=== PATIENT | female | born 1940 | race Caucasian/White ===

== ENCOUNTER 2021-12-19 17:17 | Inpatient (IN) | payer MEDICARE ==
[~2021-12-19] VITALS: Ht 165.1 cm; Wt 51.7 kg
[2021-12-19] MEDS ORDERED: NALOXONE HCL 1 MG/ML 2ML VIAL ONE (17:22)
[2021-12-19 17:38] LABS: BASOPHILS % 0.3 % (0.0-2.0); HEMATOCRIT. 43.8 % (36.0-48.0); HEMOGLOBIN. 13.8 g/dL (12.0-16.0); LYMPHOCYTES % 15.4 % (20.0-50.0); MEAN CORPUSCULAR HEMOGLOBIN 28.8 pg (28.0-32.0); MEAN CORPUSCULAR VOLUME 91.3 fL (81.0-99.0); MEAN PLATELET VOLUME 7.8 fl (7.4-10.4); MONOCYTES % 8.1 % (2.0-8.0); NEUTROPHILS % 75.2 % (40.0-76.0); PLATELET 242 x1000/uL (130-400)
[2021-12-19] MEDS ORDERED: MIDAZOLAM HCL 2 MG/2 ML VIAL ONE (17:40)
[2021-12-19 17:41] LABS: CHLORIDE 94 mEq/L (98-107)
[2021-12-19 17:51] LABS: BG BASE EXCESS -2.5 mmol/L (-2.0-2.0); BG CARBOXYHEMOGLOBIN 0.5 % (0.5-1.5); BG DEOXYHEMOGLOBIN 0.5 % (0.0-5.0); BG FRACTION INSPIRED OXYGEN 100; BG HCO3 ACT 21.4 mmol/L (22.0-26.0); BG METHEMOGLOBIN 0.3 % (0.0-1.5); BG OXYGEN SATURATION 99.5 % (92.0-98.5); BG OXYHEMOGLOBIN 98.7 % (94.0-97.0); BG PCO2 34.6 mmHg (35.0-45.0); BG PH 7.409 (7.350-7.450); BG PO2 251.4 mmHg (75.0-100.0); BG SAMPLE SITE LEFT BRACHIAL; BG TOTAL HEMOGLOBIN 14.4 g/dL (12.0-18.0); BG VENT MODE MASK - NRB
[2021-12-19 17:57] LABS: CREATINE KINASE 119 IU/L (26-192); ETHANOL BLOOD < 10 mg/dL
[2021-12-19] MEDS ORDERED: PIPERACILLIN/TAZ 3.375G PREMIX 50 ML IV NR (18:00)
[2021-12-19] MEDS ORDERED: VANCOMYCIN 1GM PMX (XELLIA) 200 ML IV NR (18:00)
[2021-12-19] MEDS ORDERED: LEVETIRACETAM 1000MG PREMIX 100 ML IV ONE (18:15)
[2021-12-19] MEDS ORDERED: MIDAZOLAM HCL 2 MG/2 ML VIAL IV ONE (18:15)
[2021-12-19] MEDS ORDERED: SODIUM CHLORIDE 0.9% 1000ML BAG (SEPSIS BOLUS) IV ONE (18:45)
[2021-12-19] MEDS ORDERED: OLANZAPINE 10 MG/VIAL IM NR (18:45)
[2021-12-19] MEDS ORDERED: IOHEXOL-350 100 ML BOTTLE ONE (19:06)
[2021-12-19] MEDS ORDERED: HALOPERIDOL LACTATE 5MG/ML VIAL IM NR (20:00)
[2021-12-19] MEDS ORDERED: DIPHENHYDRAMINE 50MG/ML VIAL IV NR (20:00)
[2021-12-19] MEDS ORDERED: POTASSIUM CHLORIDE INJ 40 MEQ in DEXT 5% WATER 500 ML IV NR (20:00)
[2021-12-19] MEDS ORDERED: LACTULOSE 20G/30ML UDC PO NR (20:15)
[2021-12-19 20:23] LABS: CLARITY URINE CLEAR (CLEAR); COLOR URINE YELLOW (YELLOW); KETONES URINE 1+ (NEGATIVE); LEUKOCYTE ESTERASE URINE NEGATIVE (NEGATIVE); NITRITE URINE NEGATIVE (NEGATIVE); OCCULT BLOOD URINE 1+ (NEGATIVE); PH URINE 7.5 (4.5-8.0); PROTEIN URINE 1+ (NEGATIVE); SPECIFIC GRAVITY URINE 1.023 (1.005-1.030); UROBILINOGEN URINE 0.2 E.U./dL (0.2-1.0)
[2021-12-19] MEDS ORDERED: ADENOSINE 3 MG/ML 2ML VIAL IV ONE ×3 (20:45→21:15)
[2021-12-19] MEDS ORDERED: ASPIRIN 325MG EC TABLET PO ONE (21:00)
[2021-12-19] MEDS ORDERED: DILTIAZEM HCL 5MG/ML 5ML VIAL IV ONE (21:15)
[2021-12-19 21:16] LABS: *AMPHETAMINES SCREEN URINE NEGATIVE (NEGATIVE); *BARBITURATES SCREEN URINE NEGATIVE (NEGATIVE); *BENZODIAZEPINES SCREEN URINE PRESUMTIVE POSITIVE (NEGATIVE); *COCAINE SCREEN URINE NEGATIVE (NEGATIVE); CANNABINOID URINE SCREEN NEGATIVE (NEGATIVE); METHADONE URINE SCREEN NEGATIVE (NEGATIVE); OPIATES URINE SCREEN NEGATIVE (NEGATIVE); PHENCYCLIDINE URINE SCREEN NEGATIVE (NEGATIVE)
[2021-12-19] MEDS ORDERED: DILTIAZEM HCL 125 MG in DEXT 5% WATER 100 ML IV ONE ×2 (21:30→22:15)
[2021-12-19] MEDS ORDERED: DILTIAZEM HCL 125 MG in DEXT 5% WATER 100 ML IV NR (21:30)
[2021-12-19] MEDS ORDERED: DILTIAZEM 125MG/125ML PMX 125 ML IV NR (21:30)
[2021-12-19] MEDS ORDERED: AMIODARONE HCL 150 MG in DEXT 5% WATER 97 ML IV ONE (21:45)
[2021-12-19] MEDS ORDERED: AMIODARONE HCL 150 MG in DEXT 5% WATER 97 ML IV NR (21:45)
[2021-12-19] MEDS ORDERED: AMIODARONE HCL 50MG/ML 3ML VIAL IV ONE ×2 (21:45→22:15)
[2021-12-19] MEDS ORDERED: METOPROLOL TARTRATE 5MG/5ML VIAL IV SCH (22:15)
[2021-12-19] MEDS ORDERED: AMIODARONE HCL 900 MG in DEXT 5% WATER 500 ML IV ONE (23:00)
[2021-12-19] MEDS ORDERED: SODIUM CHLORIDE 0.9% 2,000 ML IV ONE (23:15)
[2021-12-20] VITALS (35 sets, daily range): BP systolic 116–200; BP diastolic 54–154
[2021-12-20] MEDS ORDERED: DILTIAZEM 125MG/125ML PMX 100 ML IV SCH (04:45)
[2021-12-20] MEDS ORDERED: AMIODARONE HCL 900 MG in DEXT 5% WATER 482 ML IV SCH ×2 (04:45→07:00)
[2021-12-20] MEDS ORDERED: AMIODARONE HCL 900 MG in DEXT 5% WATER 500 ML IV PRN (05:15)
[2021-12-20 06:03] LABS: HEMATOCRIT. 36.4 % (36.0-48.0); HEMOGLOBIN. 11.8 g/dL (12.0-16.0); MEAN CORPUSCULAR HEMOGLOBIN 29.1 pg (28.0-32.0); MEAN CORPUSCULAR VOLUME 89.7 fL (81.0-99.0); MEAN PLATELET VOLUME 8.1 fl (7.4-10.4); PLATELET 214 x1000/uL (130-400); RED BLOOD CELL COUNT 4.06 mill/uL (4.2-5.4); RED CELL DISTRIBUTION WIDTH 14.6 % (11.6-14.6)
[2021-12-20 06:33] LABS: CHLORIDE 100 mEq/L (98-107)
[2021-12-20] MEDS: DILTIAZEM HCL 60MG TABLET PO SCH ×3 (08:45→21:54)
[2021-12-20 08:53] LABS: PLATELET ESTIMATE NORMAL
[2021-12-20] MEDS: PANTOPRAZOLE SODIUM 40 MG/VIAL IV SCH (09:00)
[2021-12-20] MEDS: RISPERIDONE 0.5MG TABLET PO SCH (11:00)
[2021-12-20] MEDS ORDERED: LEVETIRACETAM 500 MG in SODIUM CHLORIDE 0.9% 100 ML IV SCH (11:00)
[2021-12-20] MEDS ORDERED: SODIUM CHLORIDE 0.9% 1,000 ML IV SCH ×2 (11:00→18:15)
[2021-12-20] MEDS ORDERED: IPRATROPIUM BROMIDE (0.02%) 0.5MG/2.5ML NEB HHN PRN (11:30)
[2021-12-20] MEDS ORDERED: LEVETIRACETAM 500MG PREMIX 100 ML IV SCH (12:30)
[2021-12-20] MEDS ORDERED: LABETALOL 5MG/ML SYR 20 MG/4 ML SYRINGE IV PRN (12:30)
[2021-12-20] MEDS ORDERED: HYDRALAZINE 20MG/ML VIAL IV PRN ×2 (12:30→12:45)
[2021-12-20] MEDS ORDERED: SODIUM CHLORIDE 0.9% 500 ML IV ONE (12:42)
[2021-12-20] MEDS: PIPERACILLIN/TAZOBACTAM 3.375 G in DEXTROSE 5% WATER 50 ML IV SCH ×2 (14:39→21:53)
[2021-12-20] MEDS: LACTULOSE 20G/30ML UDC PO SCH ×2 (15:19→21:53)
[2021-12-21] VITALS (11 sets, daily range): BP systolic 106–135; BP diastolic 42–61
[2021-12-21 05:50] LABS: BASOPHILS % 0.2 % (0.0-2.0); EOSINOPHILS % 3.3 % (0.0-5.0); HEMATOCRIT. 31.9 % (36.0-48.0); HEMOGLOBIN. 10.5 g/dL (12.0-16.0); MEAN CORPUSCULAR HEMOGLOBIN 29.3 pg (28.0-32.0); MEAN CORPUSCULAR VOLUME 88.6 fL (81.0-99.0); MONOCYTES % 7.9 % (2.0-8.0); NEUTROPHILS % 80.6 % (40.0-76.0); PLATELET 190 x1000/uL (130-400); RED CELL DISTRIBUTION WIDTH 14.6 % (11.6-14.6)
[2021-12-21] MEDS: LACTULOSE 20G/30ML UDC PO SCH ×3 (06:33→22:43)
[2021-12-21] MEDS: PIPERACILLIN/TAZOBACTAM 3.375 G in DEXTROSE 5% WATER 50 ML IV SCH ×3 (06:33→22:42)
[2021-12-21] MEDS: DILTIAZEM HCL 60MG TABLET PO SCH ×3 (06:33→22:42)
[2021-12-21] MEDS: RISPERIDONE 0.5MG TABLET PO SCH (08:43)
[2021-12-21] MEDS: PANTOPRAZOLE SODIUM 40 MG/VIAL IV SCH (08:43)
[2021-12-21] MEDS ORDERED: DIPHENHYDRAMINE 50MG/ML VIAL IV SCH (08:45)
[2021-12-21] MEDS: HYDROCODONE/ACETAMINOPHEN 5/325MG TABLET PO PRN ×2 (13:14→22:50)
[2021-12-22] VITALS (15 sets, daily range): BP systolic 90–175; BP diastolic 45–74
[2021-12-22] MEDS: LACTULOSE 20G/30ML UDC PO SCH ×3 (07:27→21:34)
[2021-12-22] MEDS: PIPERACILLIN/TAZOBACTAM 3.375 G in DEXTROSE 5% WATER 50 ML IV SCH ×3 (07:27→21:34)
[2021-12-22] MEDS: ACETAMINOPHEN 325MG TABLET PO PRN (07:27)
[2021-12-22] MEDS: DILTIAZEM HCL 60MG TABLET PO SCH ×3 (07:28→21:36)
[2021-12-22] MEDS: FAMOTIDINE 20MG TABLET PO SCH (09:34)
[2021-12-22] MEDS: RISPERIDONE 0.5MG TABLET PO SCH (09:35)
[2021-12-22] MEDS ORDERED: PRED5TAB PO (17:11)
[2021-12-22] MEDS ORDERED: GABA-532 PO (17:11)
[2021-12-22] MEDS ORDERED: TRAM50TA3 PO (17:11)
[2021-12-22] MEDS ORDERED: AMLO2.5T45 PO (17:11)
[2021-12-22] MEDS ORDERED: METO-539 PO (17:11)
[2021-12-22] MEDS ORDERED: OXYB5TAB16 PO (17:11)
[2021-12-22] MEDS ORDERED: HYDR-4001 PO (17:11)
[2021-12-22] MEDS ORDERED: HYDR-3735 PO (17:11)
[2021-12-22] MEDS ORDERED: FURO20TA4 PO (17:11)
[2021-12-22] MEDS ORDERED: LEVO75TA7 PO (17:11)
[2021-12-22] MEDS ORDERED: ACET-2708 MT (17:12)
[2021-12-22] MEDS: HYDROCODONE/ACETAMINOPHEN 5/325MG TABLET PO PRN (21:36)
[2021-12-23] VITALS (12 sets, daily range): BP systolic 121–175; BP diastolic 56–91
[2021-12-23] MEDS: LACTULOSE 20G/30ML UDC PO SCH ×3 (06:47→22:04)
[2021-12-23] MEDS: PIPERACILLIN/TAZOBACTAM 3.375 G in DEXTROSE 5% WATER 50 ML IV SCH ×3 (06:47→22:04)
[2021-12-23] MEDS: HYDROCODONE/ACETAMINOPHEN 5/325MG TABLET PO PRN ×2 (06:48→22:07)
[2021-12-23] MEDS: DILTIAZEM HCL 60MG TABLET PO SCH ×3 (06:54→22:05)
[2021-12-23] MEDS: FAMOTIDINE 20MG TABLET PO SCH (08:05)
[2021-12-23] MEDS ORDERED: NALOXONE HCL 0.4MG/ML VIAL IV PRN (11:30)
[2021-12-23] MEDS: CITALOPRAM HYDROBROMIDE 10MG TABLET PO SCH (12:03)
[2021-12-23] MEDS: ARIPIPRAZOLE 5MG TABLET PO SCH (12:05)
[2021-12-24] VITALS (13 sets, daily range): BP systolic 105–154; BP diastolic 48–81
[2021-12-24] MEDS: PIPERACILLIN/TAZOBACTAM 3.375 G in DEXTROSE 5% WATER 50 ML IV SCH ×3 (05:52→21:42)
[2021-12-24] MEDS: LACTULOSE 20G/30ML UDC PO SCH ×3 (05:54→21:42)
[2021-12-24] MEDS: DILTIAZEM HCL 60MG TABLET PO SCH ×3 (05:54→21:42)
[2021-12-24] MEDS: FAMOTIDINE 20MG TABLET PO SCH (09:07)
[2021-12-24] MEDS: CITALOPRAM HYDROBROMIDE 10MG TABLET PO SCH (09:07)
[2021-12-24] MEDS: ARIPIPRAZOLE 5MG TABLET PO SCH (09:07)
[2021-12-24] MEDS: ACETAMINOPHEN 325MG TABLET PO PRN (09:08)
== END 2021-12-24 22:20 | DRG 871 ==
LOC: ER 17:17 → MICUSO 19:12 → ENRESERV 20:09 → CANRESERV 20:09 → EDBEDREQTM 21:41 → EDBEDREQSVC 21:41 → CVICU 12-20 03:44 → 5EST 12-20 13:49
PROVIDERS: ADMIT Internal Medicine; ATTEND Internal Medicine
PROC: 5A2204Z Restoration of Cardiac Rhythm, Single (ICD-10-PCS; 2021-12-19)
PROC: 4A10X4Z Monitoring of Central Nervous Electrical Activity, External Approach (ICD-10-PCS; principal; 2021-12-21)
DX: A41.9 Sepsis, unspecified organism (principal); G93.41 Metabolic encephalopathy; J96.01 Acute respiratory failure with hypoxia; E46 Unspecified protein-calorie malnutrition; E72.20 Disorder of urea cycle metabolism, unspecified; E87.1 Hypo-osmolality and hyponatremia; I16.1 Hypertensive emergency; I47.1 Supraventricular tachycardia; E87.2 Acidosis; F32.3 Major depressive disorder, single episode, severe with psychotic features; Z68.1 Body mass index [BMI] 19.9 or less, adult; N39.0 Urinary tract infection, site not specified; E86.1 Hypovolemia; G40.409 Other generalized epilepsy and epileptic syndromes, not intractable, without status epilepticus; R41.0 Disorientation, unspecified; E87.6 Hypokalemia; E87.8 Other disorders of electrolyte and fluid balance, not elsewhere classified; I10 Essential (primary) hypertension; I71.9 Aortic aneurysm of unspecified site, without rupture; S51.812A Laceration without foreign body of left forearm, initial encounter; X58.XXXA Exposure to other specified factors, initial encounter; Y93.89 Activity, other specified; Y92.89 Other specified places as the place of occurrence of the external cause; Y99.8 Other external cause status; Z78.1 Physical restraint status
CPT/HCPCS: 36415; 36600; 70551; 71045; 71275; 80048; 80053; 80061; 80305; 80307; 80320; 80329; 81003; 82140; 82375; 82550; 82805; 83036; 83605; 83735; 83880; 84443; 84484; 85025; 93005; 93306; 97110; 97116; 97161; 97162; 97165; 97166; 97530; 97535; 99291; C9113; J0153; J0282; J0360; J1200; J1630; J1953; J2250; J2310; J2543; J3370; J3480; J3490; J7030; J7060; Q9967; A4315; G0480

== ENCOUNTER 2021-12-24 22:25 | Inpatient (IN) | payer MEDICARE ==
[~2021-12-24] VITALS: Ht 172.7 cm; Wt 58.5 kg
[~2021-12-24 22:25] MED LIST: ACET-2708 MT; AMLO2.5T45 PO; FURO20TA4 PO; GABA-532 PO; HYDR-3735 PO; HYDR-4001 PO; LEVO75TA7 PO; METO-539 PO; OXYB5TAB16 PO; PRED5TAB PO; TRAM50TA3 PO
[2021-12-24 22:30] VITALS: BP 154/65
[2021-12-24] MEDS ORDERED: IPRATROPIUM BROMIDE (0.02%) 0.5MG/2.5ML NEB HHN PRN (23:15)
[2021-12-24] MEDS ORDERED: HYDRALAZINE 20MG/ML VIAL IV PRN (23:15)
[2021-12-24] MEDS ORDERED: NALOXONE HCL 0.4 MG/ML 1ML VIAL IV PRN (23:15)
[2021-12-24] MEDS ORDERED: LABETALOL 5MG/ML SYR 20 MG/4 ML SYRINGE IV PRN (23:15)
[2021-12-25] MEDS: LACTULOSE 20G/30ML UDC PO SCH ×3 (05:08→21:57)
[2021-12-25] MEDS: DILTIAZEM HCL 60MG TABLET PO SCH ×3 (05:08→21:55)
[2021-12-25] MEDS: PIPERACILLIN/TAZOBACTAM 3.375 G in DEXTROSE 5% WATER 50 ML IV SCH ×2 (05:08→13:25)
[2021-12-25 07:14] LABS: BASOPHILS % 0.6 % (0.0-2.0); EOSINOPHILS % 8.4 % (0.0-5.0); HEMATOCRIT. 30.7 % (36.0-48.0); HEMOGLOBIN. 10.3 g/dL (12.0-16.0); LYMPHOCYTES % 15.2 % (20.0-50.0); MEAN CORPUSCULAR HEMOGLOBIN 29.3 pg (28.0-32.0); MEAN CORPUSCULAR VOLUME 87.7 fL (81.0-99.0); MEAN PLATELET VOLUME 7.7 fl (7.4-10.4); MONOCYTES % 10.5 % (2.0-8.0); NEUTROPHILS % 65.3 % (40.0-76.0); PLATELET 297 x1000/uL (130-400); RED BLOOD CELL COUNT 3.51 mill/uL (4.2-5.4); RED CELL DISTRIBUTION WIDTH 14.4 % (11.6-14.6)
[2021-12-25 07:32] LABS: CHLORIDE 103 mEq/L (98-107)
[2021-12-25] MEDS ORDERED: HYDRALAZINE 10 MG in SODIUM CHLORIDE 0.9% 49.5 ML IV PRN (07:45)
[2021-12-25 08:00] VITALS: BP 156/61
[2021-12-25] MEDS: FAMOTIDINE 20MG TABLET PO SCH (09:47)
[2021-12-25] MEDS: ARIPIPRAZOLE 5MG TABLET PO SCH (09:47)
[2021-12-25] MEDS: CITALOPRAM HYDROBROMIDE 10MG TABLET PO SCH (09:47)
[2021-12-25] MEDS: HYDROCODONE/ACETAMINOPHEN 5/325MG TABLET PO PRN ×2 (09:49→22:53)
[2021-12-25] MEDS: HYDRALAZINE HCL 100MG TABLET PO SCH ×3 (10:22→21:55)
[2021-12-25] MEDS ORDERED: PIPERACILLIN/TAZOBACTAM 3.375 G in DEXTROSE 5% WATER 50 ML IV SCH (14:00)
[2021-12-25] MEDS: ACETAMINOPHEN 325MG TABLET PO PRN (17:30)
[2021-12-25 20:00] VITALS: BP 151/59
[2021-12-26] MEDS: LACTULOSE 20G/30ML UDC PO SCH ×3 (06:00→21:59)
[2021-12-26] MEDS: HYDRALAZINE HCL 100MG TABLET PO SCH ×3 (06:27→21:56)
[2021-12-26] MEDS: DILTIAZEM HCL 60MG TABLET PO SCH ×3 (06:27→21:55)
[2021-12-26 08:00] VITALS: BP 105/57
[2021-12-26] MEDS: FAMOTIDINE 20MG TABLET PO SCH (09:59)
[2021-12-26] MEDS: CITALOPRAM HYDROBROMIDE 10MG TABLET PO SCH (09:59)
[2021-12-26] MEDS: ARIPIPRAZOLE 5MG TABLET PO SCH (09:59)
[2021-12-26] MEDS: ONDANSETRON 4MG ODT PO PRN (12:44)
[2021-12-26] MEDS: ACETAMINOPHEN 325MG TABLET PO PRN (14:29)
[2021-12-26 20:00] VITALS: BP 120/45
[2021-12-27] MEDS: LACTULOSE 20G/30ML UDC PO SCH ×3 (07:06→21:50)
[2021-12-27] MEDS: DILTIAZEM HCL 60MG TABLET PO SCH ×3 (07:06→21:54)
[2021-12-27] MEDS: HYDRALAZINE HCL 100MG TABLET PO SCH ×3 (07:07→21:49)
[2021-12-27 08:00] VITALS: BP 98/39
[2021-12-27] MEDS: FAMOTIDINE 20MG TABLET PO SCH (10:09)
[2021-12-27] MEDS: CITALOPRAM HYDROBROMIDE 10MG TABLET PO SCH (10:09)
[2021-12-27] MEDS: ARIPIPRAZOLE 5MG TABLET PO SCH (10:09)
[2021-12-27] MEDS: ACETAMINOPHEN 325MG TABLET PO PRN ×2 (10:10→16:33)
[2021-12-27] MEDS: ONDANSETRON 4MG ODT PO PRN ×2 (10:10→14:44)
[2021-12-27 10:40] LABS: BASOPHILS % 0.3 % (0.0-2.0); EOSINOPHILS % 5.5 % (0.0-5.0); HEMATOCRIT. 33.2 % (36.0-48.0); HEMOGLOBIN. 10.8 g/dL (12.0-16.0); LYMPHOCYTES % 8.6 % (20.0-50.0); MEAN CORPUSCULAR HEMOGLOBIN 28.9 pg (28.0-32.0); MEAN PLATELET VOLUME 7.1 fl (7.4-10.4); MONOCYTES % 8.5 % (2.0-8.0); NEUTROPHILS % 77.1 % (40.0-76.0); PLATELET 447 x1000/uL (130-400); RED BLOOD CELL COUNT 3.73 mill/uL (4.2-5.4); RED CELL DISTRIBUTION WIDTH 14.7 % (11.6-14.6)
[2021-12-27 11:08] LABS: PHOSPHORUS 4.2 mg/dL (2.5-4.9)
[2021-12-27 14:56] VITALS: BP 101/41
[2021-12-27 20:00] VITALS: BP 123/56
[2021-12-28 06:00] LABS: BASOPHILS % 0.7 % (0.0-2.0); EOSINOPHILS % 8.8 % (0.0-5.0); HEMATOCRIT. 30.4 % (36.0-48.0); HEMOGLOBIN. 10.1 g/dL (12.0-16.0); MEAN CORPUSCULAR HEMOGLOBIN 29.2 pg (28.0-32.0); MEAN CORPUSCULAR VOLUME 88.3 fL (81.0-99.0); MEAN PLATELET VOLUME 7.4 fl (7.4-10.4); NEUTROPHILS % 65.5 % (40.0-76.0); PLATELET 441 x1000/uL (130-400); RED BLOOD CELL COUNT 3.45 mill/uL (4.2-5.4); RED CELL DISTRIBUTION WIDTH 14.9 % (11.6-14.6)
[2021-12-28] MEDS: LACTULOSE 20G/30ML UDC PO SCH ×3 (06:47→21:50)
[2021-12-28] MEDS: HYDRALAZINE HCL 100MG TABLET PO SCH ×3 (06:47→21:50)
[2021-12-28] MEDS: DILTIAZEM HCL 60MG TABLET PO SCH ×3 (06:48→21:50)
[2021-12-28 08:00] VITALS: BP 129/50
[2021-12-28] MEDS: FAMOTIDINE 20MG TABLET PO SCH (09:38)
[2021-12-28] MEDS: CITALOPRAM HYDROBROMIDE 10MG TABLET PO SCH (09:38)
[2021-12-28] MEDS: ARIPIPRAZOLE 5MG TABLET PO SCH (09:40)
[2021-12-28] MEDS: HYDROCODONE/ACETAMINOPHEN 5/325MG TABLET PO PRN (12:13)
[2021-12-28] MEDS: ONDANSETRON 4MG ODT PO PRN (12:14)
[2021-12-28 20:16] VITALS: BP 147/52
[2021-12-29] MEDS: DILTIAZEM HCL 60MG TABLET PO SCH ×3 (06:29→20:27)
[2021-12-29] MEDS: LACTULOSE 20G/30ML UDC PO SCH ×3 (06:29→20:29)
[2021-12-29] MEDS: HYDRALAZINE HCL 100MG TABLET PO SCH ×3 (06:30→20:26)
[2021-12-29 08:00] VITALS: BP 119/36
[2021-12-29] MEDS: ARIPIPRAZOLE 5MG TABLET PO SCH (09:18)
[2021-12-29] MEDS: ONDANSETRON 4MG ODT PO PRN (09:18)
[2021-12-29] MEDS: CITALOPRAM HYDROBROMIDE 10MG TABLET PO SCH (09:19)
[2021-12-29] MEDS: FAMOTIDINE 20MG TABLET PO SCH (09:19)
[2021-12-29 20:00] VITALS: BP 101/50
[2021-12-30] MEDS: DILTIAZEM HCL 60MG TABLET PO SCH ×3 (05:58→21:44)
[2021-12-30] MEDS: HYDRALAZINE HCL 100MG TABLET PO SCH ×3 (05:58→21:44)
[2021-12-30] MEDS: LACTULOSE 20G/30ML UDC PO SCH ×3 (05:59→21:44)
[2021-12-30 08:00] VITALS: BP 113/47
[2021-12-30] MEDS: FAMOTIDINE 20MG TABLET PO SCH (08:50)
[2021-12-30] MEDS: CITALOPRAM HYDROBROMIDE 10MG TABLET PO SCH (08:51)
[2021-12-30] MEDS: ARIPIPRAZOLE 5MG TABLET PO SCH (08:51)
[2021-12-30 08:57] LABS: BASOPHILS % 0.6 % (0.0-2.0); EOSINOPHILS % 9.3 % (0.0-5.0); HEMOGLOBIN. 10.1 g/dL (12.0-16.0); LYMPHOCYTES % 15.6 % (20.0-50.0); MEAN CORPUSCULAR HEMOGLOBIN 29.5 pg (28.0-32.0); MEAN CORPUSCULAR VOLUME 87.9 fL (81.0-99.0); MEAN PLATELET VOLUME 7.5 fl (7.4-10.4); MONOCYTES % 11.1 % (2.0-8.0); NEUTROPHILS % 63.4 % (40.0-76.0); PLATELET 485 x1000/uL (130-400); RED BLOOD CELL COUNT 3.41 mill/uL (4.2-5.4); RED CELL DISTRIBUTION WIDTH 14.5 % (11.6-14.6)
[2021-12-30] MEDS ORDERED: SODIUM CHLORIDE 0.9% 500 ML IV ONE (14:30)
[2021-12-30 20:00] VITALS: BP 112/50
[2021-12-31] MEDS: DILTIAZEM HCL 60MG TABLET PO SCH ×3 (05:56→21:18)
[2021-12-31] MEDS: HYDRALAZINE HCL 100MG TABLET PO SCH ×3 (05:57→21:18)
[2021-12-31] MEDS: LACTULOSE 20G/30ML UDC PO SCH ×3 (05:57→21:18)
[2021-12-31 08:00] VITALS: BP 114/51
[2021-12-31] MEDS: FAMOTIDINE 20MG TABLET PO SCH (09:17)
[2021-12-31] MEDS: CITALOPRAM HYDROBROMIDE 10MG TABLET PO SCH (09:17)
[2021-12-31] MEDS: ARIPIPRAZOLE 5MG TABLET PO SCH (09:17)
[2021-12-31] MEDS: ONDANSETRON 4MG ODT PO PRN ×2 (13:46→20:44)
[2021-12-31 20:09] VITALS: BP 124/49
[2021-12-31] MEDS: NYSTATIN POWDER 15GM TOP SCH (20:37)
[2021-12-31] MEDS: ACETAMINOPHEN 325MG TABLET PO PRN (20:44)
[2022-01-01] MEDS: HYDRALAZINE HCL 100MG TABLET PO SCH ×3 (05:13→20:50)
[2022-01-01] MEDS: DILTIAZEM HCL 60MG TABLET PO SCH ×4 (05:14→20:50)
[2022-01-01] MEDS: LACTULOSE 20G/30ML UDC PO SCH ×4 (05:14→20:50)
[2022-01-01 08:00] VITALS: BP 114/45
[2022-01-01] MEDS: CITALOPRAM HYDROBROMIDE 10MG TABLET PO SCH (08:11)
[2022-01-01] MEDS: FAMOTIDINE 20MG TABLET PO SCH (08:11)
[2022-01-01] MEDS: ARIPIPRAZOLE 5MG TABLET PO SCH (08:17)
[2022-01-01] MEDS: NYSTATIN POWDER 15GM TOP SCH ×3 (08:17→17:00)
[2022-01-01 09:50] LABS: BASOPHILS % 0.6 % (0.0-2.0); EOSINOPHILS % 9.5 % (0.0-5.0); HEMATOCRIT. 28.7 % (36.0-48.0); HEMOGLOBIN. 9.6 g/dL (12.0-16.0); MEAN CORPUSCULAR HEMOGLOBIN 29.6 pg (28.0-32.0); MEAN CORPUSCULAR VOLUME 88.3 fL (81.0-99.0); MEAN PLATELET VOLUME 7.3 fl (7.4-10.4); MONOCYTES % 10.4 % (2.0-8.0); NEUTROPHILS % 62.5 % (40.0-76.0); PLATELET 494 x1000/uL (130-400); RED BLOOD CELL COUNT 3.25 mill/uL (4.2-5.4); RED CELL DISTRIBUTION WIDTH 14.6 % (11.6-14.6)
[2022-01-01] MEDS: SODIUM CHLORIDE 0.9% 1,000 ML IV SCH ×2 (10:30→10:36)
[2022-01-01] MEDS: ONDANSETRON 4MG ODT PO PRN (10:35)
[2022-01-01 19:48] VITALS: BP 120/40
[2022-01-02] MEDS: HYDRALAZINE HCL 100MG TABLET PO SCH ×3 (05:50→21:34)
[2022-01-02] MEDS: SODIUM CHLORIDE 0.9% 1,000 ML IV SCH (05:51)
[2022-01-02 06:14] LABS: BASOPHILS % 0.6 % (0.0-2.0); EOSINOPHILS % 10.5 % (0.0-5.0); HEMATOCRIT. 28.6 % (36.0-48.0); HEMOGLOBIN. 9.6 g/dL (12.0-16.0); LYMPHOCYTES % 17.8 % (20.0-50.0); MEAN CORPUSCULAR HEMOGLOBIN 29.1 pg (28.0-32.0); MEAN PLATELET VOLUME 7.2 fl (7.4-10.4); MONOCYTES % 10.1 % (2.0-8.0); PLATELET 529 x1000/uL (130-400); RED BLOOD CELL COUNT 3.29 mill/uL (4.2-5.4); RED CELL DISTRIBUTION WIDTH 14.2 % (11.6-14.6)
[2022-01-02 08:00] VITALS: BP 140/53
[2022-01-02] MEDS: ARIPIPRAZOLE 5MG TABLET PO SCH (09:00)
[2022-01-02] MEDS: CITALOPRAM HYDROBROMIDE 10MG TABLET PO SCH (09:00)
[2022-01-02] MEDS: NYSTATIN POWDER 15GM TOP SCH ×3 (09:00→16:58)
[2022-01-02] MEDS: FAMOTIDINE 20MG TABLET PO SCH (09:00)
[2022-01-02] MEDS: LACTULOSE 20G/30ML UDC PO SCH ×3 (14:13→21:36)
[2022-01-02] MEDS: DILTIAZEM HCL 60MG TABLET PO SCH ×2 (14:13→21:33)
[2022-01-02 20:00] VITALS: BP 127/51
[2022-01-02] MEDS: ACETAMINOPHEN 325MG TABLET PO PRN (23:28)
[2022-01-03] MEDS: SODIUM CHLORIDE 0.9% 1,000 ML IV SCH ×2 (02:30→20:06)
[2022-01-03] MEDS: LACTULOSE 20G/30ML UDC PO SCH ×3 (05:56→22:00)
[2022-01-03] MEDS: DILTIAZEM HCL 60MG TABLET PO SCH ×3 (06:46→22:00)
[2022-01-03] MEDS: HYDRALAZINE HCL 100MG TABLET PO SCH ×3 (06:46→22:00)
[2022-01-03 06:51] LABS: BASOPHILS % 0.9 % (0.0-2.0); EOSINOPHILS % 13.4 % (0.0-5.0); HEMATOCRIT. 29.1 % (36.0-48.0); HEMOGLOBIN. 9.9 g/dL (12.0-16.0); MEAN CORPUSCULAR HEMOGLOBIN 29.5 pg (28.0-32.0); MEAN CORPUSCULAR VOLUME 86.6 fL (81.0-99.0); MEAN PLATELET VOLUME 7.4 fl (7.4-10.4); MONOCYTES % 8.4 % (2.0-8.0); NEUTROPHILS % 57.3 % (40.0-76.0); PLATELET 505 x1000/uL (130-400); RED BLOOD CELL COUNT 3.36 mill/uL (4.2-5.4); RED CELL DISTRIBUTION WIDTH 14.5 % (11.6-14.6)
[2022-01-03 07:57] VITALS: BP 114/40
[2022-01-03] MEDS: NYSTATIN POWDER 15GM TOP SCH ×3 (09:23→17:26)
[2022-01-03] MEDS: FAMOTIDINE 20MG TABLET PO SCH (09:23)
[2022-01-03] MEDS: ARIPIPRAZOLE 5MG TABLET PO SCH (09:23)
[2022-01-03] MEDS: CITALOPRAM HYDROBROMIDE 10MG TABLET PO SCH (09:23)
[2022-01-03 20:00] VITALS: BP 108/47
[2022-01-04] MEDS: LACTULOSE 20G/30ML UDC PO SCH ×3 (06:00→21:33)
[2022-01-04] MEDS: HYDRALAZINE HCL 100MG TABLET PO SCH ×3 (06:00→21:33)
[2022-01-04] MEDS: DILTIAZEM HCL 60MG TABLET PO SCH ×3 (06:00→21:34)
[2022-01-04 08:00] VITALS: BP 118/47
[2022-01-04] MEDS: FAMOTIDINE 20MG TABLET PO SCH (08:17)
[2022-01-04] MEDS: ARIPIPRAZOLE 5MG TABLET PO SCH (08:17)
[2022-01-04] MEDS: NYSTATIN POWDER 15GM TOP SCH ×3 (08:17→17:00)
[2022-01-04] MEDS: CITALOPRAM HYDROBROMIDE 10MG TABLET PO SCH (08:17)
[2022-01-04] MEDS: ACETAMINOPHEN 325MG TABLET PO PRN (14:13)
[2022-01-04] MEDS: SODIUM CHLORIDE 0.9% 1,000 ML IV SCH (17:08)
[2022-01-05] MEDS: LACTULOSE 20G/30ML UDC PO SCH ×3 (06:00→21:56)
[2022-01-05] MEDS: DILTIAZEM HCL 60MG TABLET PO SCH ×3 (06:00→21:55)
[2022-01-05] MEDS: HYDRALAZINE HCL 100MG TABLET PO SCH ×3 (06:00→21:55)
[2022-01-05] MEDS: ACETAMINOPHEN 325MG TABLET PO PRN ×2 (06:22→21:58)
[2022-01-05 08:00] VITALS: BP 120/52
[2022-01-05] MEDS ORDERED: NON FORMULARY PATIENT HOME MED PO SCH ×2 (09:00)
[2022-01-05] MEDS: TRAMADOL 50MG TABLET PO SCH ×2 (09:00→17:00)
[2022-01-05] MEDS: PREDNISONE 10MG TABLET PO SCH (09:00)
[2022-01-05] MEDS: CITALOPRAM HYDROBROMIDE 10MG TABLET PO SCH (09:28)
[2022-01-05] MEDS: FAMOTIDINE 20MG TABLET PO SCH (09:28)
[2022-01-05] MEDS: ARIPIPRAZOLE 5MG TABLET PO SCH (09:28)
[2022-01-05] MEDS: NYSTATIN POWDER 15GM TOP SCH ×3 (09:29→16:56)
[2022-01-05] MEDS ORDERED: NALOXONE HCL 0.4MG/ML VIAL IV PRN (12:45)
[2022-01-05] MEDS: SODIUM CHLORIDE 0.9% 1,000 ML IV SCH (13:19)
[2022-01-05 19:56] VITALS: BP 128/53
[2022-01-06] MEDS: HYDRALAZINE HCL 100MG TABLET PO SCH ×3 (06:00→22:00)
[2022-01-06] MEDS: LACTULOSE 20G/30ML UDC PO SCH ×3 (06:00→22:00)
[2022-01-06] MEDS: DILTIAZEM HCL 60MG TABLET PO SCH ×3 (06:00→22:35)
[2022-01-06 08:00] VITALS: BP 142/53
[2022-01-06] MEDS: FAMOTIDINE 20MG TABLET PO SCH (08:57)
[2022-01-06] MEDS: PREDNISONE 10MG TABLET PO SCH (08:57)
[2022-01-06] MEDS: CITALOPRAM HYDROBROMIDE 10MG TABLET PO SCH (08:57)
[2022-01-06] MEDS: NYSTATIN POWDER 15GM TOP SCH ×3 (08:57→17:01)
[2022-01-06] MEDS: ARIPIPRAZOLE 5MG TABLET PO SCH (08:57)
[2022-01-06] MEDS: TRAMADOL 50MG TABLET PO SCH ×2 (08:58→17:01)
[2022-01-06] MEDS ORDERED: DIPHENHYDRAMINE 25MG CAPSULE PO PRN (10:00)
[2022-01-06] MEDS: SODIUM CHLORIDE 0.9% 1,000 ML IV SCH (10:06)
[2022-01-06] MEDS: ACETAMINOPHEN 325MG TABLET PO PRN (14:19)
[2022-01-06 20:00] VITALS: BP 136/57
[2022-01-07] MEDS: DILTIAZEM HCL 60MG TABLET PO SCH ×2 (06:00→15:12)
[2022-01-07] MEDS: LACTULOSE 20G/30ML UDC PO SCH ×2 (06:00→15:11)
[2022-01-07] MEDS: HYDRALAZINE HCL 100MG TABLET PO SCH ×2 (06:00→15:12)
[2022-01-07] MEDS: SODIUM CHLORIDE 0.9% 1,000 ML IV SCH (06:30)
[2022-01-07 08:00] VITALS: BP 124/76
[2022-01-07] MEDS ORDERED: ABIL5 PO (08:27)
[2022-01-07] MEDS ORDERED: CITA10TA16 PO (08:27)
[2022-01-07] MEDS ORDERED: HYDR100T26 PO (08:27)
[2022-01-07] MEDS ORDERED: AMLO2.5T45 PO (08:27)
[2022-01-07] MEDS ORDERED: PRED10TA PO (08:27)
[2022-01-07] MEDS ORDERED: METO-539 PO (08:27)
[2022-01-07] MEDS: FAMOTIDINE 20MG TABLET PO SCH (08:51)
[2022-01-07] MEDS: PREDNISONE 10MG TABLET PO SCH (08:51)
[2022-01-07] MEDS: CITALOPRAM HYDROBROMIDE 10MG TABLET PO SCH (08:51)
[2022-01-07] MEDS: ARIPIPRAZOLE 5MG TABLET PO SCH (08:51)
[2022-01-07] MEDS: TRAMADOL 50MG TABLET PO SCH (08:53)
[2022-01-07] MEDS: NYSTATIN POWDER 15GM TOP SCH ×2 (08:53→13:00)
[2022-01-07 14:19] VITALS: BP 124/76
== END 2022-01-07 16:45 | DRG 70 ==
PROVIDERS: ADMIT Psychiatry & Neurology Neurology; ATTEND Internal Medicine
DX: G93.41 Metabolic encephalopathy (principal); A41.9 Sepsis, unspecified organism; J96.00 Acute respiratory failure, unspecified whether with hypoxia or hypercapnia; I96 Gangrene, not elsewhere classified; I16.1 Hypertensive emergency; E87.1 Hypo-osmolality and hyponatremia; Z68.1 Body mass index [BMI] 19.9 or less, adult; E72.20 Disorder of urea cycle metabolism, unspecified; R53.81 Other malaise; R62.7 Adult failure to thrive; I10 Essential (primary) hypertension; G40.909 Epilepsy, unspecified, not intractable, without status epilepticus; M13.0 Polyarthritis, unspecified; E87.6 Hypokalemia; E87.8 Other disorders of electrolyte and fluid balance, not elsewhere classified; Z20.822 Contact with and (suspected) exposure to COVID-19; Z78.1 Physical restraint status; Z91.81 History of falling; M20.092 Other deformity of left finger(s); M20.091 Other deformity of right finger(s); Z95.828 Presence of other vascular implants and grafts; Z86.79 Personal history of other diseases of the circulatory system
CPT/HCPCS: 36415; 73560; 80048; 80053; 82140; 82330; 82533; 83735; 83935; 84100; 85025; 87426; 92523; 93970; 97110; 97112; 97116; 97162; 97166; 97530; 97535; J2543; J7030; J7060; J7512; Q0162; Q0163